=== PATIENT | male | born 1990 | race Caucasian/White ===

== ENCOUNTER 2018-07-26 15:33 | Emergency (ER) | payer MEDICAID, SELFPAY ==
[2018-07-26 15:34] VITALS: BP 121/70; PULSE 75; RESP 16; TEMP 36.8; O2SAT 99; BMI 25.0
[2018-07-26] MEDS: Metoclopramide 10 MG/2 ML Vial IV (15:56)
[2018-07-26] MEDS: Ketorolac 30 MG/ML Syringe IV (15:56)
[2018-07-26] MEDS: DiphenhydrAMINE 50 MG/ML Syringe 25 MG IV (15:56)
[2018-07-26] MEDS: 0.9% Normal Saline 1,000 ML 1000 ML IV (15:56)
--- NOTE | 2018-07-26 16:48 | ED.DCSUM_ITS ---
- ER Visit Summary Date of Service: 07/26/18 Chief Complaint: [Headache] History of Present Illness: The patient is a 27 M [presents the emergency department with a headache since yesterday. Patient states that the entire head hurts and throbs. Headache came on gradually. He has had prior headaches like this before and gets them about once or twice a year. Patient complains of nausea and photophobia. Patient states that loud sounds bother him. Patient did take an aspirin yesterday which did help him sleep the headache was only about a 4 5 out of 10 yesterday but rates it a 7 or 8 out of 10 currently. Patient denies any falls or head injuries. He denies any recent illness.] Physical Examination: [HEENT-PERRLA, EOMI. Cranial nerves II through XII grossly intact. TMs clear. Mucous membranes moist. No adenopathy. Cardiovascular-regular rate and rhythm without murmur or ectopy Lungs-clear to auscultation, chest wall stable without crepitus or subcu emphysema Abdomen-normoactive bowel sounds, soft, nontender, no rebound or rigidity, no peritoneal signs. Neuro fbtg-gsezzt-sors and heel nugent testing within normal limits, negative Romberg, negative for drift, fundi benign Extremities-intact ?4, normal range of motion, normal pulses, atraumatic] Test Results: [None indicated] Emergency Department Course and Treatment: [An IV line was established and patient was given a liter normal same fluid bolus as well as Reglan, Benadryl, and Toradol and his headache resolved.] Treatment Plan: [Patient will be referred to primary care physician ammonia solution preparer for no doc.] Disposition: [Discharged home in stable condition] Impression: [Migrainous cephalgia-resolved] This note was generated with [employer] dictation software. It may contain incorrect words, spelling, and punctuation that were not noted in review of the chart prior to signing ED Disposition - Plan for ED Patient: Chief Complaint: Headache Referrals: Care Physician,No Primary [Primary Care Provider] -
--- NOTE | 2018-07-26 16:49 | ED.DEP ---
ED Disposition - Plan for ED Patient: Chief Complaint: Headache Instructions: ED Headache Migraine Referrals: Care Physician,No Primary [Primary Care Provider] - Isidro Campos MD [STAFF PHYSICIAN] - 3-5 Days
[2018-07-26 16:58] VITALS: BP 108/63; PULSE 58; RESP 16; O2SAT 100
--- NOTE | 2018-07-26 16:58 | ED.RN ---
REVIEWED D/C INSTRUCTIONS, FOLLOW UP CARE, AND S/S THAT WOULD WARRANT A RETURN TO THE ED WITH PT. PT VERBALIZED AN UNDERSTANDING AND DENIES FURTHER QUESTIONS FOR THIS RN. PT SKIN P/W/D, RESP EVEN AND UNLABORED, PT A&O X 3, NO DISTRESS NOTED. PT AMBULATED OUT OF ED, GAIT STEADY.
== END 2018-07-26 16:59 | disposition home or self-care (01) ==
LOC: ED 15:54
PROVIDERS: Emergency Provider Emergency Medicine
DX: G43.909 Migraine, unspecified, not intractable, without status migrainosus (principal); F17.200 Nicotine dependence, unspecified, uncomplicated
CPT/HCPCS: 96361; 96374; 96375; 99283; J7030; A4216